=== PATIENT | female | born 1955 ===

== ENCOUNTER 2019-05-07 05:40 | Day surgery (SDC) | payer OTHER ==
[~2019-05-07 05:40] MED LIST: CLONAZEPAM1 MG PO; NEXIUM PO; PAMELOR75 M1 PO; PRISTIC PO; SENOKOT8.6 M1 PO; SYNTHROID150 MCG PO; XANAX2 MG PO
[2019-05-07] MEDS ORDERED: TYLENOL325 MG PO (09:33)
== END 2019-05-07 11:00 | disposition home or self-care (01) ==
LOC: CIR.AMB 05:40
DX: N84.0 Polyp of corpus uteri (principal)